=== PATIENT | female | born 1980 | race Caucasian/White ===

== ENCOUNTER 2016-12-26 11:19 | Emergency (ER) | payer OTHER ==
[2016-12-26 11:37] VITALS: BP 131/81; PULSE 90; TEMP 98; BMI 41.9
[2016-12-26 11:52] LABS: URINE APPEARANCE CLEAR; URINE BILIRUBIN NEGATIVE (NEGATIVE); URINE BLOOD NEGATIVE (NEGATIVE); URINE COLOR LTYELLOW; URINE GLUCOSE (UA) NEGATIVE (NEGATIVE); URINE KETONE NEGATIVE (NEGATIVE); URINE LEUK ESTERASE NEGATIVE (NEGATIVE); URINE NITRITE NEGATIVE (NEGATIVE); URINE PROTEIN NEGATIVE (NEGATIVE); URINE UROBILINOGEN NEGATIVE mg/dL (0.2-1.0)
[2016-12-26 12:28] LABS: EOSINOPHIL 4.1 % (0-4.5); MCH 31.5 pg (25.7-33.7); MCHC 33.5 g/dl (32.0-36.0); MEAN PLT VOLUME 8.8 fl (7.5-11.1); NEUTROPHILS 53.7 % (42.8-82.8); PLATELET COUNT 250 K/MM3 (134-434); RDW 12.9 % (11.6-15.6); WHITE BLOOD COUNT 8.1 K/mm3 (4.0-10.0)
[2016-12-26 12:50] LABS: ALBUMIN 3.3 g/dl (3.4-5.0); ANION GAP 6 (8-16); BILIRUBIN,TOTAL 0.2 mg/dL (0.2-1.0); CALCIUM 8.9 mg/dL (8.5-10.1); CO2 28 mmol/L (21-32); CREATININE 0.6 mg/dL (0.55-1.02); GLUCOSE,RANDOM 106 mg/dL (74-106); SGOT/AST 10 U/L (15-37); SGPT/ALT 9 U/L (12-78); TOT PROT 6.4 g/dl (6.4-8.2)
[2016-12-26 12:51] LABS: ALK PHOS 80 U/L (45-117)
--- NOTE | 2016-12-26 12:56 | PDOC ---
History of Present Illness - General Chief Complaint: Pain Stated Complaint: PAIN Time Seen by Provider: 12/26/16 11:25 History Source: Patient Exam Limitations: No Limitations - History of Present Illness Initial Comments: 12/26/16 12:50 The patient is a 36F with no PMH who presents with 3 weeks of pain. The pain is suprapubic, constant, and has been worsening. She states that going to the bathroom makes it better. The pain does not radiate and is similar to menstrual cramps and a UTI that she has had previously. LMP is 1 week ago. The patient is sexual active and occasionally uses condoms. The patient states that she had a rash in that area but is unsure if it is related to her morbid obesity (rash between the fat on her abdomen). She states that the suprapubic area feels warm to her. Social: Smokes .5ppd, does not drink and does not use recreational drugs Surg: c/s Allergies: none Past History - Past Medical History Allergies/Adverse Reactions: Allergies Allergy/AdvReac Type Severity Reaction Status Date / Time No Known Drug Allergies Allergy Verified 10/03/14 01:40 Home Medications: Ambulatory Orders NK [No Known Home Medication] 12/26/16 Anemia: No Asthma: No Cancer: No Cardiac Disorders: No CVA: No COPD: No DVT: No Dementia: No Diabetes: No Dialysis: No GI Disorders: No Disorders: No HTN: No Hypercholesterolemia: No HIV: No Kidney Stones: No Liver Disease: No Psychiatric Problems: No Suicide Attempt (Hx): No Seizures: No Thyroid Disease: No Lung CA: No - Reproductive History Para: 5 - Immunization History Immunization Up to Date: Yes - Psycho/Social/Smoking Cessation Hx Anxiety: No Suicidal Ideation: No Smoking Status: Yes Smoking History: Never smoked Have you smoked in the past 12 months: Yes Number of Cigarettes Smoked Daily: 10 Cigars Per Day: 10 Information on smoking cessation initiated: No 'Breaking Loose' booklet given: 01/25/14 Hx Alcohol Use: No Drug/Substance Use Hx: No Substance Use Type: None Hx Substance Use Treatment: No Review of Systems - Review of Systems Able to Perform ROS?: Yes Is the patient limited Beninese proficient: No Constitutional: Yes: Fever (over suprapubic region). No: Chills Respiratory: No: Shortness of Breath Cardiac (ROS): No: Chest Pain ABD/GI: Yes: Other (Suprapubic abdominal pain). No: Nausea, Vomiting : Yes: Other (pressure in bladder). No: Burning, Dysuria, Discharge Integumentary: Yes: Rash *Physical Exam - Vital Signs Last Vital Signs Temp Pulse Resp BP Pulse Ox 98.0 F 90 20 131/81 99 12/26/16 11:29 12/26/16 11:29 12/26/16 11:29 12/26/16 11:29 12/26/16 11:29 - Physical Exam General Appearance: Yes: Nourished, Appropriately Dressed, Obese. No: Apparent Distress Respiratory/Chest: positive: Lungs Clear, Normal Breath Sounds. negative: Chest Tender, Respiratory Distress Cardiovascular: positive: Regular Rhythm, Regular Rate, S1, S2 Female Pelvic Exam: positive: normal external exam, cervical os closed, normal adnexa, other (slight white discharge; performed by Dr. Saldana) Gastrointestinal/Abdominal: positive: Tender (over suprapubic area), Flat, Soft , Tenderness. negative: Guarding, Rebound Musculoskeletal: positive: CVA Tenderness, CVA Tenderness (R) Extremity: negative: Calf Tenderness Integumentary: positive: Dry, Warm, Swelling (1+ in lower extremities; no calf swelling) Neurologic: positive: Fully Oriented, Alert, Normal Mood/Affect ED Treatment Course - LABORATORY CBC & Chemistry Diagram: 12/26/16 12:13 12/26/16 12:13 - ADDITIONAL ORDERS Additional order review: Laboratory Results 12/26/16 12/26/16 11:41 11:41 Urine Color Ltyellow Urine Appearance Clear Urine pH 5.0 Urine Protein Negative Urine Glucose (UA) Negative Urine Ketones Negative Urine Blood Negative Urine Nitrite Negative Urine Bilirubin Negative Urine Urobilinogen Negative Ur Leukocyte Esterase Negative Urine HCG, Qual Negative Medical Decision Making - Medical Decision Making 12/26/16 12:58 Patient is a 36F with no PMH who presents with symptoms. Workup includes r/o pyelo and TOA, and UTI. 12/26/16 15:01 UA is negative. Patient sent to CT to look for other pathologies. *DC/Admit/Observation/Transfer Diagnosis at time of Disposition: Abdominal pain Qualifiers: Abdominal location: lower abdomen, unspecified Qualified Code(s): R10.30 - Lower abdominal pain, unspecified - Discharge Dispostion Disposition: HOME Condition at time of disposition: Stable Admit: No - Patient Instructions Printed Discharge Instructions: DI for Abdominal Pain-Adult - Attestations Physician Attestion: 12/26/16 18:21 I, Dr. Kenny Biswas, attest that this document has been prepared under my direction and personally reviewed by me in its entirety. I further attest, that it accurately reflects all work, treatment, procedures and medical decision -making performed by me.
--- NOTE | 2016-12-26 17:13 | PDOC ---
Attending Attestation - Resident Resident Name: Major Biswasony - ED Attending Attestation I have performed the following: I have examined & evaluated the patient, The case was reviewed & discussed with the resident, I agree w/resident's findings & plan, Exceptions are as noted - HPI HPI: 12/26/16 17:08 36 yo F with h/o frequent yeast infection, here with c/o lower abd pulling sensation suprapubic pain. no vaginal discharge. is sexually active new partner unprotected one week ago. no change to vaginal discharge. no f/c no n/v no dysuria. no h/o fibroids. no change to bowels. - Physicial Exam PE: 12/26/16 17:09 on exam awake alert lungs clear heart rrr no mrg. abd soft mild suprpubic ttp. obese abdomen . no cva tendenress. pelvic scant whitish dc. no adnexal tenderness. no cmt. ext wwp . skin warm and dry. no rash. nuero awake and alert. - Medical Decision Making 12/26/16 17:11 tp lower lower abd pain, differential uti, ovarian cyst fibroids, diverticulitis, plan ct a/p transvag sono, ua ucg . urine for gc chlamydia
== END 2016-12-26 19:19 | disposition home or self-care (01) ==
LOC: JER 11:19
DX: R10.30 Lower abdominal pain, unspecified (principal)
CPT/HCPCS: 36415; 74177-TC; 76830-TC; 76856-TC; 80053; 81003; 84703; 85025; 87086; 87491; 87591; 99282-25

== ENCOUNTER 2017-10-18 09:32 | Emergency (ER) | payer OTHER ==
[2017-10-18 09:38] VITALS: BP 100/65; PULSE 84; TEMP 98.3; BMI 45.6
--- NOTE | 2017-10-18 11:25 | PDOC ---
History of Present Illness - General Chief Complaint: Respiratory Stated Complaint: LEG PAIN, BREATHING PROBLEMS Time Seen by Provider: 10/18/17 10:36 Past History - Past Medical History Allergies/Adverse Reactions: Allergies Allergy/AdvReac Type Severity Reaction Status Date / Time No Known Drug Allergies Allergy Verified 10/18/17 09:38 Home Medications: Ambulatory Orders Albuterol 2.5/Ipratropium 0.5 [Duoneb -] 1 neb NEB Q4H #20 vial 10/18/17 Azithromycin [Zithromax 250mg Tablets -] 250 mg PO UTDICT #6 tab 10/18/17 Ibuprofen 800 mg PO TID #30 tablet 10/18/17 predniSONE [Deltasone -] 40 mg PO DAILY #8 tablet 10/18/17 Anemia: No Asthma: No Cancer: No Cardiac Disorders: No CVA: No COPD: No DVT: No Dementia: No Diabetes: No Dialysis: No GI Disorders: No Disorders: No HTN: No Hypercholesterolemia: No Kidney Stones: No Liver Disease: No Psychiatric Problems: No Seizures: No Thyroid Disease: No Lung CA: No - Reproductive History Para: 5 - Immunization History Immunization Up to Date: Yes - Suicide/Smoking/Psychosocial Hx Smoking Status: Yes Smoking History: Current every day smoker Have you smoked in the past 12 months: No Number of Cigarettes Smoked Daily: 10 Cigars Per Day: 10 Information on smoking cessation initiated: No 'Breaking Loose' booklet given: 01/25/14 Hx Alcohol Use: No Drug/Substance Use Hx: No Substance Use Type: None Hx Substance Use Treatment: No *Physical Exam - Vital Signs Last Vital Signs Temp Pulse Resp BP Pulse Ox 98.3 F 84 18 100/65 100 10/18/17 09:35 10/18/17 09:35 10/18/17 09:35 10/18/17 09:35 10/18/17 09:35 *DC/Admit/Observation/Transfer Diagnosis at time of Disposition: Bronchitis Knee pain Qualifiers: Chronicity: acute Laterality: right Qualified Code(s): M25.561 - Pain in right knee - Discharge Dispostion Disposition: HOME Condition at time of disposition: Stable Decision to Admit order: No - Referrals Referrals: Diogenes Miller MD [Staff Physician] - - Patient Instructions Printed Discharge Instructions: DI for Acute Bronchitis, DI for Knee Pain Additional Instructions: You sprained your knee. Your x-ray was negative for broken bones. Please keep your knee elevated while at rest above the level of your heart to reduce swelling. You may take Motrin 800 mg every 8 hours to help reduce pain and swelling. Please ice the area for 20 minute intervals at least 5 times a day to help reduce swelling. Please wear the Yahir wrap. Please follow-up with orthopedics in 1 week if your symptoms are not improving. You also have bronchitis Take the duoneb every 4 hours as needed for cough or shortness of breath Take the prednisone as prescribed. Take the z-lydia as prescribed Return to the emergency department if you have worsening pain, or unable to walk , numbness and tingling of the foot, or had any changes in her symptoms. - Post Discharge Activity Forms/Work/School Notes: Back to Work
[2017-10-18] MEDS ORDERED: IBUPROFEN 400 MG TABLET (FP) PO ONE ×2 (11:27→11:38)
[2017-10-18] MEDS ORDERED: ALBUTEROL SO4 2.5/IPRATROPIUM 0.5 INH SOL 3 ML VIAL.NEB. NEB ONE ×2 (11:27→11:38)
[2017-10-18] MEDS ORDERED: predniSONE 20 MG TABLET (UD) PO ONE (11:27)
[2017-10-18] MEDS ORDERED: predniSONE 20 MG TABLET (UD) ONE (11:38)
== END 2017-10-18 12:43 | disposition home or self-care (01) ==
LOC: JERFT 09:32
PROC: 3E0F7GC Introduction of Other Therapeutic Substance into Respiratory Tract, Via Natural or Artificial Opening (ICD-10-PCS; principal; 2017-10-18)
DX: J20.9 Acute bronchitis, unspecified (principal); M25.561 Pain in right knee; F17.210 Nicotine dependence, cigarettes, uncomplicated
CPT/HCPCS: 73562-TC-RT-FY; 94640; 99281-25; J7620